=== PATIENT | female | born 1965 | race Caucasian/White ===

== ENCOUNTER 2022-04-16 13:13 | Inpatient (IN) | payer BC ==
[~2022-04-16] VITALS: Ht 165.1 cm; Wt 143.0 kg
[2022-04-16] MEDS ORDERED: LEVE500T9 PO (13:29)
[2022-04-16] MEDS ORDERED: BUPR100T5 PO (13:29)
[2022-04-16] MEDS ORDERED: DULO20CA PO (13:29)
[2022-04-16] MEDS ORDERED: TRAZ-182 PO (13:29)
[2022-04-16] MEDS ORDERED: CIPR-263 PO (13:29)
[2022-04-16] MEDS ORDERED: LISI2.5T14 PO (13:29)
[2022-04-16] MEDS ORDERED: METO2.5T2 PO (13:29)
[2022-04-16] MEDS ORDERED: ARIP2TAB3 PO (13:29)
[2022-04-16] MEDS ORDERED: HYDR-4209 PO (13:29)
[2022-04-16] MEDS ORDERED: BACL10TA PO (13:29)
[2022-04-16] MEDS ORDERED: GABA-532 PO (13:29)
[2022-04-16] MEDS ORDERED: BUSP5TAB3 PO (13:29)
--- NOTE | 2022-04-16 13:30 | NUR ---
Pt lethargic and confused, unable to recall dosages of medications right now, will need further follow up.
[2022-04-16 13:59] LABS: ABG BASE EXCESS -3.7 mmol/L; ABG PCO2 42.4 mmHg (35.0-45.0); ABG PH 7.333 (7.350-7.450); ABG PO2 74.3 mmHg (75.0-100.0); ABG SITE RIGHT RADIAL; ABG TOTAL HEMOGLOBIN 9.7 G/dL (12.0-16.0); COHb 0.3 % (0.5-1.5); MetHb 0.3 % (0.0-1.5); O2Hb 94.2 % (94.0-97.0); VENT MODE RA
[2022-04-16 14:14] LABS: PLATELET COUNT (AUTO) 415 K/uL (179-408)
[2022-04-16 14:18] LABS: ETHANOL < 3 MG/DL (0-0)
--- NOTE | 2022-04-16 14:25 | NUR ---
Pt to CT via [facility].
[2022-04-16 14:27] LABS: THYROID STIMULATING HORMONE 0.518 mIU/mL (0.358-3.740)
[2022-04-16 14:32] LABS: CARBON DIOXIDE 25 mmol/L (21-32); CHLORIDE 110 mmol/L (98-107); CREATININE 1.7 mg/dL (0.6-1.3); GLUCOSE 98 mg/dL (74-106); UREA NITROGEN, BLOOD 58 mg/dL (7-18)
[2022-04-16 14:38] LABS: ALANINE AMINOTRANSFERASE 26 U/L (14-59); ALKALINE PHOSPHATASE 87 U/L (50-136); ASPARTATE AMINOTRANSFERASE 19 U/L (15-37); BILIRUBIN,DIRECT 0.1 mg/dL (0.0-0.2); BILIRUBIN,TOTAL 0.2 mg/dL (0.2-1.0); TOTAL PROTEIN, SERUM 6.5 g/dL (6.4-8.2)
--- NOTE | 2022-04-16 14:40 | NUR ---
Pt back from CT.
[2022-04-16] MEDS ORDERED: ACETAMINOPHEN ES 500 MG TABLET PO ONE (14:45)
[2022-04-16] MEDS ORDERED: IV NORMAL SALINE 1000 ML BAG IV ONE (14:45)
--- NOTE | 2022-04-16 14:45 | NUR ---
Dr.Daniel Sahu at bedside.
[2022-04-16] MEDS ORDERED: ACETAMINOPHEN ES 500 MG TABLET ONE (14:47)
[2022-04-16 15:10] LABS: ACETAMINOPHEN < 2.0 ug/mL (10-30)
--- NOTE | 2022-04-16 15:26 | NUR ---
Pt. admitted to tele , under care of Dr.Daniel Sahu. Room assignment: [id number] Called to give report to tele floor, nurse is busy and will call back for report. Pt is requesting Neurontin 300mg po, ERMD notified.
[2022-04-16] MEDS ORDERED: GABAPENTIN 300 MG CAPSULE ONE (15:43)
[2022-04-16] MEDS ORDERED: GABAPENTIN 300 MG CAPSULE PO ONE (15:45)
--- NOTE | 2022-04-16 15:56 | NUR ---
Attempted to give report again, nurse still busy and will call back. Pt resting with NAD noted at this time.
[2022-04-16] MEDS ORDERED: ONDANSETRON 4 MG/2 ML VIAL IV PRN (16:45)
[2022-04-16] MEDS ORDERED: REMEDY ESSENTIAL ZINC PASTE 113 GM TP PRN (16:45)
[2022-04-16] MEDS ORDERED: MAGNESIUM HYDROXIDE 30 ML LIQUID UDC PO PRN (16:45)
--- NOTE | 2022-04-16 16:49 | NUR ---
Attempted to call tele floor multiple times for report in the last few mins, there is no answer. Pt states she is uncomfortable in the ER gurney. Nursing supervisor [employer] notified.
--- NOTE | 2022-04-16 17:00 | NUR ---
SBAR report given to ELISABET Syed via telephone.
--- NOTE | 2022-04-16 18:00 | NUR ---
Pt trans to tele room 314.
[2022-04-16 18:36] VITALS: BP 173/80
[2022-04-16] MEDS ORDERED: hydrALAZINE HCL 20 MG/1 ML VIAL IV PRN (18:45)
[2022-04-16] MEDS: IV 1/2NS 1000 ML 1,000 ML IV PRN (18:53)
[2022-04-16 21:02] VITALS: BP 146/69
[2022-04-16] MEDS: levETIRAcetam IV 500 MG in IV DEXTROSE 5% 100 ML IV SCH (21:44)
[2022-04-16] MEDS: HEPARIN SODIUM,PORCINE 5,000 UNITS/ML VIAL SQ SCH (21:54)
[2022-04-16 22:36] LABS: *BILIRUBIN,URIN NEGATIVE (NEGATIVE); *BLOOD, URINE 2+ (NEGATIVE); *CLARITY,URINE CLEAR (CLEAR); *COLOR,URINE YELLOW (YELLOW); *KETONES,URINE NEGATIVE (NEGATIVE); *UROBILINOGEN,URINE 0.2 E.U./dl (NORMAL); LEUKOCYTE ESTERASE ,URINE NEGATIVE (NEGATIVE); NITRITE, URINE NEGATIVE (NEGATIVE); UGLUCOSE NEGATIVE (NEGATIVE)
[2022-04-16 22:46] LABS: *AMPHETAMINE, URINE NEGATIVE (NEGATIVE); *CANNABINOID, URINE NEGATIVE (NEGATIVE); *COCCAINE, URINE NEGATIVE (NEGATIVE); *PHENCYCLIDINE SCREEN,URINE NEGATIVE (NEGATIVE)
[2022-04-16 22:51] LABS: BACTERIA,URINE R /HPF (NONE SEEN); RBC,URINE 20-50 /HPF (0-3); SQUAMOUS EPITHELIAL CELL,UR FEW /HPF (NONE SEEN); WBC,URINE 0-3 /HPF (0-3)
[2022-04-17 00:17] VITALS: BP 155/71
[2022-04-17] MEDS: ACETAMINOPHEN 325 MG TABLET PO PRN (01:24)
[2022-04-17] MEDS ORDERED: LORAZEPAM 2 MG/1 ML VIAL IV ONE (02:15)
--- NOTE | 2022-04-17 02:21 | NUR ---
PT SCREAMING AND VERY AGITATED; REFERRED TO ADELINA OSORIO WITH AN ORDER FOR ARIVAN X1 AND PSYCH EVAL Addendum: 04/17/22 at 0222 by JORGE FRENCH RN ATIVAN 1MG X1
[2022-04-17 04:40] VITALS: BP 151/70
[2022-04-17] MEDS: PANTOPRAZOLE SODIUM 40 MG TABLET.DR PO SCH (07:12)
[2022-04-17 07:18] LABS: HEMATOCRIT 25.6 % (31.2-41.9); MEAN CORPUSCULAR HEMOGLOBIN 27.8 uug (24.7-32.8); MEAN CORPUSCULAR VOLUME 86.5 fL (75.5-95.3); PLATELET COUNT (AUTO) 386 K/uL (179-408)
[2022-04-17 07:58] LABS: THYROID STIMULATING HORMONE 0.245 mIU/mL (0.358-3.740)
[2022-04-17 08:06] LABS: CREATININE 1.5 mg/dL (0.6-1.3); MAGNESIUM 2.7 mg/dL (1.8-2.4); PHOSPHOROUS 4.8 mg/dL (2.5-4.9)
[2022-04-17] MEDS: HEPARIN SODIUM,PORCINE 5,000 UNITS/ML VIAL SQ SCH ×2 (10:02→21:09)
[2022-04-17] MEDS: levETIRAcetam IV 500 MG in IV DEXTROSE 5% 100 ML IV SCH ×2 (10:03→21:07)
--- NOTE | 2022-04-17 11:12 | NUR ---
SW consult requested to assess living situation. Patient is a 56-year-old female who was admitted to the hospital for altered mental status. Patient is alert and oriented X2. Patient presents with anxious mood and congruent affect. Patient appears lethargic and confused. Patient states that her primary contact is her 96 year old motherMichelle ([phone]) and she lives with the patient at [address] [place] [address] in a one-story house. Patient states she is currently unemployed, has a cane at home, and receives home health services three times a week. Patient also states that her mother, Michelle receives home health services once a week. Patient denies a history of substance abuse and states she has a history of depression. The toxicology report was positive for benzodiazepines and SW provided the patient with medication assisted treatment from [facility] [id number] ([phone]), [facility] [id number] ([phone]), and [address] [id number] ([phone]) and placed a copy in the chart. Patient denies suicidal or homicidal ideation. STEPHEN filed an APS report Intake ID [id number] for suspicion of self-neglect and an APS report Intake ID [id number] suspicion of neglect for the patients motherMichelle and a copy of the reports were placed in the chart. Patient states her plan for discharge is to go home to [address] [place] [address].
[2022-04-17] MEDS ORDERED: CYANOCOBALAMIN 1000 MCG/ML VIAL IM ONE (11:15)
[2022-04-17 12:00] VITALS: BP 131/80
[2022-04-17] MEDS: IV 1/2NS 1000 ML 1,000 ML IV PRN (12:22)
--- NOTE | 2022-04-17 13:12 | NUR ---
Patient is sleepy and drowsy since morning, she is trying to get out of the bed. When asked her name, she answered correctly, she knows she is in the hospital, but doesn't recall what year it is right now. Her mother called and aksed to speak to her but the patient was sleeping at that time. She left her phone [employer] [phone] Michelle.
--- NOTE | 2022-04-17 13:47 | NUR ---
WOUND CARE CONSULT: PT PRESENTS WITH BILATERAL LOWER LEG BLISTERS/OPEN AREAS, PRESENT ON ADMISSION. PT HAS XEROFORM DRESSINGS IN PLACE. DPM CONSULT CALLED TO DR BELCZYK. SEBASTIAN IN AGREEMENT WITH PLAN OF CARE. DISCUSSED SKIN PROTECTION WITH NURSING STAFF.
[2022-04-17] MEDS: SOD FERRIC GLUC COMPLX/SUCROSE 125 MG in IV NORMAL SALINE 100 ML IV SCH (14:18)
[2022-04-17] MEDS: CLOTRIMAZOLE 1% CREAM 30 GM TUBE TOP SCH (16:19)
[2022-04-17] MEDS ORDERED: BUME2TAB7 PO (16:38)
[2022-04-17] MEDS ORDERED: METO5TAB7 PO (16:38)
[2022-04-17] MEDS ORDERED: BUPR-319 PO (16:38)
[2022-04-17] MEDS ORDERED: BACL20TA PO (16:38)
[2022-04-17] MEDS ORDERED: BUSP15TA3 PO (16:38)
[2022-04-17] MEDS ORDERED: LISI40TA13 PO (16:38)
[2022-04-17] MEDS ORDERED: DULO60CA64 PO (16:38)
[2022-04-17] MEDS ORDERED: FURO-151 PO (16:38)
[2022-04-17] MEDS ORDERED: TRAZ150T75 PO (16:38)
[2022-04-17] MEDS ORDERED: GABA600T12 PO (16:38)
[2022-04-17] MEDS ORDERED: HYDR-3976 PO (16:38)
[2022-04-17] MEDS ORDERED: ARIP5TAB59 PO (16:38)
[2022-04-17 17:37] VITALS: BP 110/88
[2022-04-17 20:00] VITALS: BP 171/89
[2022-04-17 20:32] VITALS: BP 149/84
[2022-04-17] MEDS: ATORVASTATIN 40 MG TABLET PO SCH (21:07)
[2022-04-18] MEDS: IV 1/2NS 1000 ML 1,000 ML IV PRN ×2 (03:21→20:44)
[2022-04-18 04:20] VITALS: BP 147/74
[2022-04-18] MEDS: PANTOPRAZOLE SODIUM 40 MG TABLET.DR PO SCH (06:29)
--- NOTE | 2022-04-18 06:46 | NUR ---
Slept intermittently, easy to arouse alert and oriented x 2, not in resp distress. Denies any pain/discomfort. Needs assessed and attended to. Call light within easy reach.
[2022-04-18 07:22] LABS: HEMATOCRIT 24.4 % (31.2-41.9); MEAN CORPUSCULAR HEMOGLOBIN 28.3 uug (24.7-32.8); MEAN CORPUSCULAR VOLUME 86.4 fL (75.5-95.3); PLATELET COUNT (AUTO) 409 K/uL (179-408)
[2022-04-18 07:41] LABS: CREATININE 1.4 mg/dL (0.6-1.3); MAGNESIUM 2.4 mg/dL (1.8-2.4); POTASSIUM 3.8 mmol/L (3.5-5.1)
[2022-04-18] MEDS: levETIRAcetam IV 500 MG in IV DEXTROSE 5% 100 ML IV SCH (08:06)
[2022-04-18] MEDS: DULOXETINE 60 MG CAPSULE.DR PO SCH (08:06)
[2022-04-18] MEDS: ASPIRIN 81 MG TAB.CHEW PO SCH (08:06)
[2022-04-18] MEDS: HEPARIN SODIUM,PORCINE 5,000 UNITS/ML VIAL SQ SCH ×2 (08:08→20:34)
[2022-04-18] MEDS: CLOTRIMAZOLE 1% CREAM 30 GM TUBE TOP SCH ×2 (08:18→17:01)
[2022-04-18 12:08] VITALS: BP 153/75
[2022-04-18] MEDS: SOD FERRIC GLUC COMPLX/SUCROSE 125 MG in IV NORMAL SALINE 100 ML IV SCH (13:25)
[2022-04-18 16:00] VITALS: BP 144/87
[2022-04-18] MEDS: ACETAMINOPHEN 325 MG TABLET PO PRN (16:25)
[2022-04-18] MEDS: ENSURE ENLIVE (VAN) 240 ML LIQUID PO SCH (17:01)
--- NOTE | 2022-04-18 17:53 | NUR ---
A/O X3. NO C/O PAIN AT THIS TIME. VS WNL. ON O2 2L NC SATING WELL. NO SOB OR RESP. DISTRESS NOTED. IVF INFUSING WELL. CALL LIGHT IN REACH. ALL NEEDS ATTENDED. WILL CONTINUE TO MONITOR AND ASSESS.
[2022-04-18 20:00] VITALS: BP 149/72
[2022-04-18] MEDS: ATORVASTATIN 40 MG TABLET PO SCH (20:32)
[2022-04-18] MEDS: levETIRAcetam 500 MG TABLET PO SCH (20:32)
[2022-04-19 04:00] VITALS: BP 168/77
[2022-04-19] MEDS: ACETAMINOPHEN 325 MG TABLET PO PRN ×3 (04:57→21:13)
[2022-04-19] MEDS: PANTOPRAZOLE SODIUM 40 MG TABLET.DR PO SCH (06:28)
--- NOTE | 2022-04-19 06:54 | NUR ---
AAO x 3, in no acute distress. No c/o pain or any discomfort. Dressing on bilateral legs changed, tolerated care well. Needs assessed and attended to.
[2022-04-19 06:59] LABS: CREATININE 1.4 mg/dL (0.6-1.3); MAGNESIUM 2.3 mg/dL (1.8-2.4); PHOSPHOROUS 3.6 mg/dL (2.5-4.9); POTASSIUM 3.6 mmol/L (3.5-5.1)
[2022-04-19] MEDS ORDERED: PANTOPRAZOLE SODIUM 40 MG TABLET.DR PO SCH (07:00)
[2022-04-19 08:07] LABS: HEMATOCRIT 22.7 % (31.2-41.9); MEAN CORPUSCULAR HEMOGLOBIN 28.1 uug (24.7-32.8); MEAN CORPUSCULAR VOLUME 85.7 fL (75.5-95.3); PLATELET COUNT (AUTO) 355 K/uL (179-408)
[2022-04-19] MEDS: DULOXETINE 60 MG CAPSULE.DR PO SCH (08:14)
[2022-04-19] MEDS: levETIRAcetam 500 MG TABLET PO SCH ×2 (08:14→20:36)
[2022-04-19] MEDS: HEPARIN SODIUM,PORCINE 5,000 UNITS/ML VIAL SQ SCH ×2 (08:15→20:37)
[2022-04-19] MEDS: ASPIRIN 81 MG TAB.CHEW PO SCH (08:16)
[2022-04-19] MEDS: AMLODIPINE 10 MG TABLET PO SCH (08:21)
[2022-04-19] MEDS: ENSURE ENLIVE (VAN) 240 ML LIQUID PO SCH ×2 (08:22→16:03)
[2022-04-19] MEDS: CLOTRIMAZOLE 1% CREAM 30 GM TUBE TOP SCH ×2 (08:33→16:04)
[2022-04-19 09:00] VITALS: BP 130/65
[2022-04-19 12:00] VITALS: BP 126/81
[2022-04-19] MEDS: IV 1/2NS 1000 ML 1,000 ML IV PRN (13:01)
[2022-04-19] MEDS: SOD FERRIC GLUC COMPLX/SUCROSE 125 MG in IV NORMAL SALINE 100 ML IV SCH (14:59)
[2022-04-19 16:00] VITALS: BP 147/73
[2022-04-19 18:20] LABS: *OCCULT BLOOD STOOL NEGATIVE (NEGATIVE)
--- NOTE | 2022-04-19 19:35 | NUR ---
RECEIVED REPORT FROM CONSTANCE CUEVA RN. PATIENT IS ALERT & ORIENTED X4, AND SPEAKS [place]. VITAL SIGNS STABLE. PATIENT VOIDS ADEQUATELY AND HAD 4 BOWEL MOVEMENTS. PATIENT TOLERATES PO AND IV MEDICATIONS AND DIET WELL; HOWEVER PATIENT REFUSES MEALS SHE DID NOT LIKE SOME FOODS. PATIENT PARTICIPATES WITH PHYSICAL AND OCCUPATIONAL THERAPY SCHEDULED. PERIWICK SYSTEM IN PLACE. PATIENT HAD ONE COMPLAINT OF PAIN. RN GAVE MEDICATIONS ORDERED BY MD TO HELP TREAT PAIN. STOOL SAMPLE COLLECTED ORDERED. PER NET WASHERGORDON BHANDARI, REQUEST, RN TOOK PHOTOS OF BRUISES ON THE RIGHT ARM. FALL PRECAUTIONS OBSERVED. NO ACUTE DISTRESS. ALL NEEDS MET AT THIS TIME. ENDORSED CARE TO ELISABET CUEVA, FOR CONTINUATION OF CARE.
[2022-04-19 20:00] VITALS: BP 132/87
[2022-04-19] MEDS: ATORVASTATIN 40 MG TABLET PO SCH (20:36)
[2022-04-19] MEDS: BACLOFEN 10 MG TABLET PO SCH (21:13)
[2022-04-20 04:00] VITALS: BP 128/74
[2022-04-20] MEDS: IV 1/2NS 1000 ML 1,000 ML IV PRN ×2 (04:22→19:28)
[2022-04-20] MEDS ORDERED: MELATONIN 3 MG TABLET PO PRN (05:00)
--- NOTE | 2022-04-20 05:25 | NUR ---
Patient slept intermittently, no acute distress noted. LAC midline intact and patent. Needs attended.
[2022-04-20] MEDS: PANTOPRAZOLE SODIUM 40 MG TABLET.DR PO SCH (06:37)
[2022-04-20 06:59] LABS: HEMATOCRIT 23.1 % (31.2-41.9); MEAN CORPUSCULAR HEMOGLOBIN 27.8 uug (24.7-32.8); MEAN CORPUSCULAR VOLUME 85.9 fL (75.5-95.3); PLATELET COUNT (AUTO) 380 K/uL (179-408)
[2022-04-20 07:16] LABS: CREATININE 1.3 mg/dL (0.6-1.3); MAGNESIUM 2.3 mg/dL (1.8-2.4); PHOSPHOROUS 3.8 mg/dL (2.5-4.9); POTASSIUM 3.3 mmol/L (3.5-5.1)
[2022-04-20] MEDS: ENSURE ENLIVE (VAN) 240 ML LIQUID PO SCH ×2 (08:18→17:27)
[2022-04-20] MEDS: AMLODIPINE 10 MG TABLET PO SCH (09:35)
[2022-04-20] MEDS: levETIRAcetam 500 MG TABLET PO SCH ×2 (09:36→20:26)
[2022-04-20] MEDS: ASPIRIN 81 MG TAB.CHEW PO SCH (09:36)
[2022-04-20] MEDS: DULOXETINE 60 MG CAPSULE.DR PO SCH (09:36)
[2022-04-20] MEDS: HEPARIN SODIUM,PORCINE 5,000 UNITS/ML VIAL SQ SCH ×2 (09:40→20:31)
[2022-04-20] MEDS: CLOTRIMAZOLE 1% CREAM 30 GM TUBE TOP SCH ×2 (09:42→17:28)
[2022-04-20] MEDS ORDERED: POTASSIUM CHLORIDE 20 MEQ TAB.PRT.SR PO ONE (10:00)
[2022-04-20 11:17] VITALS: BP 143/68
[2022-04-20] MEDS ORDERED: BACL10TA PO (11:34)
[2022-04-20] MEDS ORDERED: ATOR40TA PO (11:34)
[2022-04-20] MEDS ORDERED: FERR325T23 PO (11:34)
[2022-04-20] MEDS ORDERED: LEVE500T9 PO (11:34)
[2022-04-20] MEDS ORDERED: ASPI81TA31 PO (11:34)
[2022-04-20] MEDS ORDERED: AMLO10TA59 PO (11:34)
[2022-04-20] MEDS: SOD FERRIC GLUC COMPLX/SUCROSE 125 MG in IV NORMAL SALINE 100 ML IV SCH (14:11)
[2022-04-20 15:00] VITALS: BP 133/69
[2022-04-20 20:00] VITALS: BP 148/89
[2022-04-20] MEDS: ATORVASTATIN 40 MG TABLET PO SCH (20:26)
[2022-04-20] MEDS: BACLOFEN 10 MG TABLET PO SCH (20:26)
[2022-04-20] MEDS: ACETAMINOPHEN 325 MG TABLET PO PRN (23:20)
[2022-04-21 03:48] VITALS: BP 138/74
--- NOTE | 2022-04-21 04:52 | NUR ---
Patient alert oriented, complain of mild pain, given tylenol 650mg earlier with help. Patient sleep intermittenly, dangle on side of bed, encourage to keep both legs elevated to reduced swelling, bilatyeral legs with cellulitis, dressing was changed, kept comfortable, cont to monitor.
[2022-04-21] MEDS: PANTOPRAZOLE SODIUM 40 MG TABLET.DR PO SCH (06:07)
[2022-04-21 06:54] LABS: HEMATOCRIT 24.2 % (31.2-41.9); MEAN CORPUSCULAR HEMOGLOBIN 27.7 uug (24.7-32.8); MEAN CORPUSCULAR VOLUME 86.2 fL (75.5-95.3); PLATELET COUNT (AUTO) 392 K/uL (179-408)
[2022-04-21 07:14] LABS: CREATININE 1.3 mg/dL (0.6-1.3); MAGNESIUM 2.3 mg/dL (1.8-2.4); PHOSPHOROUS 3.7 mg/dL (2.5-4.9); POTASSIUM 3.3 mmol/L (3.5-5.1)
[2022-04-21] MEDS: ENSURE ENLIVE (VAN) 240 ML LIQUID PO SCH (07:56)
[2022-04-21] MEDS: levETIRAcetam 500 MG TABLET PO SCH (09:10)
[2022-04-21] MEDS: ASPIRIN 81 MG TAB.CHEW PO SCH (09:10)
[2022-04-21] MEDS: DULOXETINE 60 MG CAPSULE.DR PO SCH (09:10)
[2022-04-21] MEDS: AMLODIPINE 10 MG TABLET PO SCH (09:17)
[2022-04-21] MEDS: CLOTRIMAZOLE 1% CREAM 30 GM TUBE TOP SCH (09:18)
[2022-04-21] MEDS ORDERED: POTASSIUM CHLORIDE 20 MEQ TAB.PRT.SR PO ONE (10:00)
[2022-04-21] MEDS: HEPARIN SODIUM,PORCINE 5,000 UNITS/ML VIAL SQ SCH (10:40)
[2022-04-21 11:20] VITALS: BP 168/83
[2022-04-21] MEDS: SOD FERRIC GLUC COMPLX/SUCROSE 125 MG in IV NORMAL SALINE 100 ML IV SCH (13:43)
[2022-04-21 15:12] VITALS: BP 147/83
--- NOTE | 2022-04-21 15:47 | NUR ---
[facility] DISCHARGE [facility]
== END 2022-04-21 15:40 | DRG 682 ==
LOC: ER 13:18 → TELE3 17:51 → MEDSURG3 04-17 09:20
PROVIDERS: ADMIT Nurse Practitioner Family; ATTEND Nurse Practitioner Acute Care
PROC: 05H633Z Insertion of Infusion Device into Left Subclavian Vein, Percutaneous Approach (ICD-10-PCS; principal; 2022-04-17)
PROC: B547ZZA Ultrasonography of Left Subclavian Vein, Guidance (ICD-10-PCS; 2022-04-17)
DX: N17.0 Acute kidney failure with tubular necrosis (principal); G92.9 Unspecified toxic encephalopathy; I87.313 Chronic venous hypertension (idiopathic) with ulcer of bilateral lower extremity; L97.829 Non-pressure chronic ulcer of other part of left lower leg with unspecified severity; L97.819 Non-pressure chronic ulcer of other part of right lower leg with unspecified severity; Z68.43 Body mass index [BMI] 50.0-59.9, adult; E86.0 Dehydration; D64.9 Anemia, unspecified; E83.19 Other disorders of iron metabolism; F32.A Depression, unspecified; G40.909 Epilepsy, unspecified, not intractable, without status epilepticus; H40.9 Unspecified glaucoma; I10 Essential (primary) hypertension; G89.4 Chronic pain syndrome; I77.6 Arteritis, unspecified; I89.0 Lymphedema, not elsewhere classified; I12.9 Hypertensive chronic kidney disease with stage 1 through stage 4 chronic kidney disease, or unspecified chronic kidney disease; N18.9 Chronic kidney disease, unspecified; J44.9 Chronic obstructive pulmonary disease, unspecified; F39 Unspecified mood [affective] disorder; E66.01 Morbid (severe) obesity due to excess calories; R29.6 Repeated falls; W19.XXXA Unspecified fall, initial encounter; Y93.9 Activity, unspecified; Y92.009 Unspecified place in unspecified non-institutional (private) residence as the place of occurrence of the external cause; F11.10 Opioid abuse, uncomplicated; T50.2X5A Adverse effect of carbonic-anhydrase inhibitors, benzothiadiazides and other diuretics, initial encounter
CPT/HCPCS: 36415; 36600; 70450; 71045; 72131; 72192; 76770; 83550; 83605; 83735; 84100; 84443; 84484; 85025; 85730; 86803; 87040; 87806; 93005; 97535-GO-CO; A4663; A6213; A9150; C1758; G0378; G0480; J0360; J1644; J1953; J2060; J2916; J3420; J7040